=== PATIENT | female | born 1965 | race American Indian/Alaskan Native ===

== ENCOUNTER 2017-02-06 09:57 | Emergency (ER) | payer OTHER ==
[2017-02-06 10:46] VITALS: BP 142/89
[2017-02-06] MEDS ORDERED: MOTRIN PO ONE (11:25)
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
== END 2017-02-06 12:09 | disposition home or self-care (01) ==
LOC: ED 09:57
DX: S13.4XXA Sprain of ligaments of cervical spine, initial encounter (principal); Z90.710 Acquired absence of both cervix and uterus; Z95.0 Presence of cardiac pacemaker; V43.52XA Car driver injured in collision with other type car in traffic accident, initial encounter; Y93.89 Activity, other specified; Y99.8 Other external cause status; Y92.89 Other specified places as the place of occurrence of the external cause
CPT/HCPCS: 99282